=== PATIENT | male | born 1945 | race Caucasian/White ===

== ENCOUNTER 2019-06-19 17:36 | Emergency (ER) | payer MEDICARE, BC ==
[2019-06-19] MEDS ORDERED: PROPARACAINE 0.5% OPHTH DROPS 15 ML EACHEYE STA (18:16)
--- NOTE | 2019-06-19 18:16 | ED Physician Documentation ---
PD HPI OPHTHO - Stated complaint Stated Complaint: RIGHT EYE INJURY - Chief complaint Chief Complaint: Trauma Hd/Nk - History obtained from History obtained from: Patient - History of Present Illness Timing - onset: How many hours ago (1-2), Today Timing - details: Abrupt onset (he was loading furniture in his truck and placing a bungee cord, that struck him in the right eye. He says it was blurry some at first but could see rather okay. Has gotten blurrier and darker vision/cloudy since the injury. Mild light sensitive.), Still present Location: Right Associated symptoms: Swelling, Decreased vision. No: Redness, Matting, FB sensation, Photophobia Contributing factors: Blunt trauma (struck by end of bungee cord), Other (not on anticoagulants). No: Wears contacts Similar symptoms before: Has not had sx before Recently seen: Not recently seen Review of Systems Eyes: reports: Decreased vision (cloudy) Nose: denies: Rhinorrhea / runny nose, Congestion Throat: denies: Sore throat Respiratory: denies: Cough Neurologic: denies: Altered mental status, Headache PD PAST MEDICAL HISTORY - Past Medical History Cardiovascular: None Respiratory: None Neuro: None Endocrine/Autoimmune: None - Present Medications Home Medications: Ambulatory Orders Medication Instructions Recorded Confirmed Lansoprazole 30 mg PO DAILY 06/19/19 06/19/19 Lisinopril 10 mg PO DAILY 06/19/19 06/19/19 - Allergies Allergies/Adverse Reactions: Allergies Allergy/AdvReac Type Severity Reaction Status Date / Time No Known Drug Allergies Allergy Verified 06/19/19 17:43 PD ED PE NORMAL - Vitals Vital signs reviewed: Yes - General General: Alert and oriented X 3, No acute distress, Well developed/nourished - HEENT HEENT: Ears normal, Pharynx benign, Other (right periorbital redness and swelling. There is abrasion right eye anteriorly. Small subconj hemorrhage lower aspect. Hyphema noted in bottom third of ant chamber and also clouding the rest of the anterior chamber. ) PD ED PE EXPANDED - Eyes Eyes: EOMI, Corneal abrasion (anterior eye), Hyphema (making view of the posterior chamber difficult. ), Unable to visualize fundi. No: PERRL (left eye reactive. RIght is midpoint and sluggish to nonreactive. ), Corneal FB Results - Vitals Vitals: Vital Signs - 24 hr 06/19/19 06/19/19 17:41 20:03 Temperature 37 C Heart Rate 73 55 L Respiratory 20 13 Rate Blood Pressure 174/79 H 153/88 H O2 Saturation 96 97 Oxygen O2 Source Room air - Rads (name of study) orbital CT Radiology: Prelim report reviewed (no fractures. no retrobulbar swelling.), See rad report PD MEDICAL DECISION MAKING - ED course Complexity details: re-evaluated patient (he is getting able to see better as he sits in the ER. presume the Hyphema is settling. Now can make out images and colors better. Less cloudy. ), considered differential (hyphema and abrasion. Cannot see fundus due to hyphema. ), d/w patient, d/w financial analysis consultant (Dr. Lester agrees to see patient first thing in AM in office. ) Departure - Departure Disposition: 01 Home, Self Care Clinical Impression: Hyphema of right eye Corneal abrasion Qualifiers: Encounter type: initial encounter Laterality: right Qualified Code(s): S05.01XA - Injury of conjunctiva and corneal abrasion without foreign body, right eye, initial encounter Eye injury Qualifiers: Encounter type: initial encounter Laterality: right Qualified Code(s): S05.91XA - Unspecified injury of right eye and orbit, initial encounter Condition: Stable Record reviewed to determine appropriate education?: Yes Instructions: ED Eye Injury Hyphema Follow-Up: Rashard Lester MD [Provider Admit Priv/Credential] - Comments: No vigorous activity this evening. Stay calm and seated. No watching TV or other highly visual activity. Stay in a upright position and no bending over. You can use some cool towels of the eye to reduce swelling around the eye socket. Tylenol or ibuprofen if needed for pains. No aspirin. Follow-up with Dr. Lester in his [facility] office tomorrow morning at 8 AM. Discharge Date/Time: 06/19/19 20:03
--- NOTE | 2019-06-19 19:38 | CT Report ---
Reason: right eye injury from bungee cord Procedure Date: 06/19/2019 Accession Number: [id number] / [id number] Procedure: CT - ORBITS WO CPT Code: FULL RESULT: EXAM: CT MAXILLOFACIAL WITHOUT CONTRAST EXAM DATE: 06/19/2019 06:54 PM. CLINICAL HISTORY: Right eye injury from bungee cord. COMPARISONS: None. TECHNIQUE: Thin-section axial images were acquired of the face without contrast. Post-processing: Coronal and sagittal reformats. Other: None. In accordance with CT protocol optimization, one or more of the following dose reduction techniques were utilized for this exam: automated exposure control, adjustment of mA and/or KV based on patient size, or use of iterative reconstructive technique. FINDINGS: Soft Tissue: There is asymmetric soft tissue swelling of the preseptal right orbit. No soft tissue foreign body. Orbits: Globes appear normal and symmetric. No post septal fluid collection or mass. Bones: Negative for fracture. No lytic or destructive bone lesion. Temporomandibular Joints: Temporal mandibular joints appears satisfactory. Sinuses: Normal. No mucosal thickening or fluid levels. Other: None. IMPRESSION: 1. Superficial right periorbital soft tissue swelling. 2. No facial or orbital fracture. 3. No posterior orbital hematoma. RADIA
[2019-06-19] MEDS ORDERED: ERYTHROMYCIN OPHTH OINT 1 GM TUBE RIGHTEYE STA (19:51)
[2019-06-19 20:04] VITALS: BP 153/88
== END 2019-06-19 20:03 | disposition home or self-care (01) ==
LOC: ED 17:36
DX: S00.211A Abrasion of right eyelid and periocular area, initial encounter (principal); W20.8XXA Other cause of strike by thrown, projected or falling object, initial encounter; Y93.E9 Activity, other interior property and clothing maintenance
CPT/HCPCS: 70480; 99282; 99284; J3490

== ENCOUNTER 2023-01-07 09:06 | Day surgery (SDC) | payer MEDICARE, BC ==
[~2023-01-07 09:06] MED LIST: CYCLOPENTOLATE 1% OPHTH DROPS 2 ML ONE; PHENYLEPHRINE 2.5% OPHTH 2 ML DROPS ONE; PROPARACAINE 0.5% OPHTH DROPS 15 ML ONE
[2023-01-07] MEDS ORDERED: LACTATED RINGERS 1,000 ML IV ONE (09:44)
[2023-01-07] MEDS ORDERED: KETOROLAC 15 MG/ML VIAL ONE (10:12)
[2023-01-07] MEDS ORDERED: TRIAMCIN/MOXIFLOX OPHTHALMIC 0.6 ML VIAL IO ONE ×2 (10:57→11:31)
[2023-01-07] MEDS ORDERED: EPINEPHrine 1 MG/ML AMP ONE (10:57)
--- NOTE | 2023-01-07 10:57 | ANESTHESIA ---
Pre-Anesthesia VS, & Labs - Diagnosis right combined senile cataract - Procedure right cataract extraction with IOL Vital Signs: Temp Pulse Resp BP Pulse Ox O2 Flow Rate 36.2 C L 56 L 18 143/76 H 97 01/07/23 09:40 01/07/23 09:40 01/07/23 09:40 01/07/23 09:40 01/07/23 09:40 Height: 5 ft 10 in Weight (kg): 97.4 kg Body Mass Index: 30.8 BMI Classification: Obese - NPO >8 hours Home Medications and Allergies Active Medications Ketorolac Tromethamine (Ketorolac 0.45% Ophth Drops) 1 drops RIGHTEYE ONCE ONE Stop: 01/07/23 11:01 Lansoprazole 30 mg PO DAILY 06/19/19 lisinopriL [Lisinopril] 10 mg PO DAILY 06/19/19 Allergies/Adverse Reactions: Allergies Allergy/AdvReac Type Severity Reaction Status Date / Time No Known Drug Allergies Allergy Verified 01/07/23 10:01 Anes History & Medical History - Anesthetic History Anesthesia Complications: reports: No previous complications - Medical History Cardiovascular: reports: None, Hypertension Pulmonary: reports: None, Sleep apnea, CPAP use Gastrointestinal: reports: GERD Urinary: reports: None Neuro: reports: None Musculoskeletal: reports: Chronic back pain Endocrine/Autoimmune: reports: None Blood Disorders: reports: None Skin: reports: None Smoking Status: Never smoker - Surgical History General: reports: Appendectomy Orthopedic: reports: Other Exam General: Alert, Oriented x3, Cooperative Dental: WNL Mouth Opening: Greater than 4 Fingerbreadths Neck Mobility: Normal Mallampati classification: II Thyromental Distance: greater than 6 cm Respiratory: Lungs clear Cardiovascular: Regular rate Plan Anesthesia Type: MAC Consent for Procedure(s) Verified and Reviewed: Yes Code Status: Attempt Resuscitation ASA classification: 2-Mild systemic disease Is this case an emergency?: No
[2023-01-07] MEDS ORDERED: VANCOMYCIN OPHTH (TOPICAL) 10 MG/ML SYRINGE ONE (10:58)
[2023-01-07] MEDS ORDERED: TIMOLOL 0.5% OPHTH DROPS ONE (10:58)
[2023-01-07] MEDS ORDERED: BRIMONIDINE 0.2% OPHTH DROPS 5 ML ONE (10:58)
[2023-01-07] MEDS ORDERED: BSS/LIDOCAINE/EPINEPHRINE 1 ML VIAL ONE (10:58)
[2023-01-07] MEDS ORDERED: MIDAZOLAM 2 MG/2 ML VIAL ONE (10:59)
[2023-01-07] MEDS ORDERED: KETOROLAC 0.45% OPHTH DROPS RIGHTEYE ONE (11:00)
[2023-01-07] MEDS ORDERED: fentaNYL 100 MCG/2 ML VIAL ONE (11:14)
[2023-01-07] MEDS ORDERED: EPINEPHrine 1 MG/ML AMP IR ONE (11:30)
[2023-01-07] MEDS ORDERED: BRIMONIDINE 0.2% OPHTH DROPS 5 ML OPTH ONE (11:30)
[2023-01-07] MEDS ORDERED: TIMOLOL 0.5% OPHTH DROPS OPTH ONE (11:30)
[2023-01-07] MEDS ORDERED: PROPARACAINE 0.5% OPHTH DROPS 15 ML RIGHTEYE ONE (11:31)
[2023-01-07] MEDS ORDERED: VANCOMYCIN OPHTH (TOPICAL) 10 MG/ML SYRINGE TOP ONE (11:31)
[2023-01-07] MEDS ORDERED: BSS/LIDOCAINE/EPINEPHRINE 1 ML SYRINGE IO ONE (11:31)
[2023-01-07] MEDS ORDERED: LACTATED RINGERS 500 ML IV ONE (11:45)
--- NOTE | 2023-01-07 11:56 | OPERATIVE REPORT ---
Operative Report - Other Other Information/Narrative: Date of Surgery: 01/07/23 Preop Dx: Visually significant cataract left eye. This was the first cataract surgery. Postop Dx: Same Procedure: Phacoemulsification with posterior chamber toric intraocular lens implant left eye Surgeon: Dr. Rashard Lester Anesthesia: Monitored anesthesia care Complications: None Operative Indications: This is a 77-year-old M with progressive vision loss in the left eye due to 2+ nuclear sclerotic, 2-3+ cortical, and 1+ posterior sub capsular cataract. Best corrected visual acuity was 20/40 with glare to 20/250 vision in the left eye. Indications for surgery were: - Overall decrease in vision - Difficulty seeing words on a computer screen - Difficulty seeing words, closed captions, or game scores on TV - Difficulty seeing street signs - Difficulty driving in low light or at night - Difficulty driving at night because of headlights from other vehicles - Difficulty with glare or bright lights in any situation - Difficulty tracking a golf ball The patient was consented at length concerning the risks and benefits of cataract surgery after which the patient expressed a desire to proceed with surgery. Operative Procedure: The patients cornea was marked in the pre-surgical area to indicate the axis for the toric intraocular lens. The patient was taken into OR#3 and placed under monitored anesthesia care. A surgical time-out was conducted confirming correct patient, correct procedure, and correct surgical site. The patient was given topical anesthesia and then prepped and draped in the usual sterile fashion. The eye was entered at the 6 and 3 oclock positions. Intracameral Shugarcaine was injected into the anterior chamber followed by a dispersive viscoelastic. A continuous-tear curvilinear capsulorhexis was performed. The nucleus was hydrodissected and phacoemulsified. The cortex was evacuated using automated infusion and aspiration. A cohesive viscoelastic was injected into the capsular bag and a 19.5 diopter toric intraocular lens was inserted into the bag and rotated to axis 087. Infusion and aspiration were used to evacuate the viscoelastic materials from the eye and the IOL was verified to remain on axis. The wounds were hydrated and the eye inflated to physiologic pressure using balanced salt solution. Approximately 0.25ml of a mixture of triamcinolone and moxifloxacin was injected trans- sclerally into the vitreous in the inferotemporal quadrant using a 30 gauge cannula. An additional 0.25ml of a mixture of triamcinolone and moxifloxacin was injected subconjunctivally in the superior quadrant for infection and inflammation prophylaxis. Wound integrity was checked with Weck-Rochelle sponges and the IOL axis was once again verified to be on the correct axis. The patient was taken from the operating room in good condition and given post-op instructions.
--- NOTE | 2023-01-07 12:02 | ANESTHESIA POST OP EVALUATION ---
Anesthesia Post Eval - Post Anesthesia Eval Vitals: Last Vital Signs Temp 36.5 C 01/07/23 11:45 Pulse 51 L 01/07/23 11:45 Resp 16 01/07/23 11:45 BP 142/82 H 01/07/23 11:45 Pulse Ox 99 01/07/23 11:45 O2 Flow Rate CV Function Including HR & BP: Stable Pain Control: Satisfactory Nausea & Vomiting: Negative Mental Status: Baseline Respiratory Status: Airway Patent Hydration Status: Satisfactory Anesthesia Complications: None
[2023-01-07 12:20] VITALS: BP 123/73
--- NOTE | 2023-01-14 11:16 | OPERATIVE REPORT ---
Operative Report - Other Other Information/Narrative: Addendum/Correction Cataract surgery performed [id number] was performed on the RIGHT eye, not the left. Replace all instances of "left eye" in the Operation Report dated [id number] with "right eye". Date of Surgery: 01/07/23 Preop Dx: Visually significant cataract right eye. This was the first cataract surgery. Postop Dx: Same Procedure: Phacoemulsification with posterior chamber intraocular lens implant right eye Surgeon: Dr. Rashard Lester Anesthesia: Monitored anesthesia care
== END 2023-01-07 09:07 | disposition home or self-care (01) ==
LOC: SDS 09:06
PROVIDERS: ATTEND Ophthalmology
DX: H25.811 Combined forms of age-related cataract, right eye (principal); E66.9 Obesity, unspecified; Z68.30 Body mass index [BMI] 30.0-30.9, adult; G47.30 Sleep apnea, unspecified
CPT/HCPCS: 66984; A9270; J3490; J7120; V2632; V2787